=== PATIENT | male | born 2000 | race Caucasian/White ===

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

== ENCOUNTER 2020-12-28 17:45 | Emergency (ER) | payer BC, OTHER ==
--- NOTE | 2020-12-28 18:55 | ED ---
ENT HPI <Lucero Carmona - Last Filed: 12/28/20 18:56> <Charlie Wan - Last Filed: 12/28/20 20:21> - General Chief complaint: ENT Stated complaint: sore throat,fever Time Seen by Provider: 12/28/20 18:52 - History of Present Illness Initial comments: Patient is a 20-year-old male presenting to emergency Department with complaints of a sore throat x 2 days, which is better now, also nasal congestion, fever x 1 day. Patient denies any chest pain, only when coughing, no shortness of breath, no abdominal pain, nausea or vomiting. Coughing only has been minimal. He has been eating and drinking as normal. (Lucero Carmona) - Related Data Home Medications Medication Instructions Recorded Confirmed Methylphenidate HCl 40 mg PO QAM 08/22/18 12/31/18 [Methylphenidate HCl LA] Allergies Allergy/AdvReac Type Severity Reaction Status Date / Time No Known Allergies Allergy Verified 12/28/20 18:56 Review of Systems ROS Other: All systems not noted in ROS Statement are negative. <Lucero Carmona - Last Filed: 12/28/20 18:56> ROS Other: All systems not noted in ROS Statement are negative. <Charlie Wan - Last Filed: 12/28/20 20:21> ROS Statement: Those systems with pertinent positive or pertinent negative responses have been documented in the HPI. Past Medical History Past Medical History: No Reported History Additional Past Medical History / Comment(s): Autism History of Any Multi-Drug Resistant Organisms: None Reported Past Surgical History: No Surgical Hx Reported Past Psychological History: ADD/ADHD Past Alcohol Use History: None Reported Past Drug Use History: None Reported <Lucero Carmona - Last Filed: 12/28/20 18:56> General Exam Limitations: no limitations General appearance: alert, in no apparent distress Head exam: Present: atraumatic Eye exam: Present: normal appearance <Lucero Carmona - Last Filed: 12/28/20 18:56> General appearance: alert, in no apparent distress Head exam: Present: atraumatic, normocephalic, normal inspection Eye exam: Present: normal appearance, PERRL, EOMI. Absent: scleral icterus, conjunctival injection, periorbital swelling ENT exam: Present: normal exam, mucous membranes moist Neck exam: Present: normal inspection. Absent: tenderness, lymphadenopathy Respiratory exam: Present: normal lung sounds bilaterally. Absent: respiratory distress, wheezes, rales, rhonchi, stridor Cardiovascular Exam: Present: regular rate, normal rhythm, normal heart sounds. Absent: systolic murmur, diastolic murmur, rubs, gallop, clicks Extremities exam: Present: normal inspection, full ROM, normal capillary refill. Absent: tenderness, pedal edema, joint swelling, calf tenderness Neurological exam: Present: alert, oriented X3 Psychiatric exam: Present: normal affect, normal mood Skin exam: Present: warm, dry, intact, normal color. Absent: rash <Chralie Wan - Last Filed: 12/28/20 20:21> Course Vital Signs 12/28/20 18:52 Temperature 98.1 F Pulse Rate 104 H Respiratory 20 Rate Blood Pressure 132/78 O2 Sat by Pulse 99 Oximetry Medical Decision Making <Charlie Wan - Last Filed: 12/28/20 20:21> - Medical Decision Making 20-year-old male complaining of sore throat cough and upper respiratory tract symptoms for the past 3 days concern for Covid. Covid test ordered. Covid test negative. Case discussed with Dr. Floyd, patient discharge home with follow-up primary care and conservative management. (Charlie Wan) - Lab Data Lab Results 12/28/20 Range/Units 18:58 Coronavirus (PCR) Not Detected (Not Detectd) Disposition <Lucero Carmona - Last Filed: 12/28/20 18:56> Is patient prescribed a controlled substance at d/c from ED?: No Time of Disposition: : <Charlie Wan - Last Filed: 12/28/20 20:21> Clinical Impression: Acute viral pharyngitis Disposition: HOME SELF-CARE Condition: Stable Instructions (If sedation given, give patient instructions): Pharyngitis (ED) Additional Instructions: Please return to the Emergency Department if symptoms worsen or any other concerns. Follow-up with primary care 1-2 days. Take Tylenol and Motrin as needed for pain. Can take [id number] cough medicine for cough. Referrals: Leighton Randolph MD [Primary Care Provider] - 1-2 days
[2020-12-28 18:56] VITALS: BP 132/78; PULSE 104; RESP 20; TEMP 98.1
== END 2020-12-28 20:26 | disposition home or self-care (01) ==
LOC: EC 17:45
DX: J02.8 Acute pharyngitis due to other specified organisms (principal); B97.89 Other viral agents as the cause of diseases classified elsewhere; F90.9 Attention-deficit hyperactivity disorder, unspecified type; F84.0 Autistic disorder; Z20.822 Contact with and (suspected) exposure to COVID-19
CPT/HCPCS: 87635; 99283

== ENCOUNTER 2022-09-28 12:16 | Emergency (ER) | payer BC, MEDICARE, OTHER ==
[2022-09-28 12:45] VITALS: TEMP 97.9
--- NOTE | 2022-09-28 13:12 | XR ---
EXAMINATION TYPE: XR ankle complete LT DATE OF EXAM: 09/28/2022 COMPARISON: NONE HISTORY: Pain FINDINGS: Three views of the ankle demonstrate the ankle mortise to be intact and symmetric. The joint spaces are preserved. The osseous structures are intact. IMPRESSION: 1. No definite acute fracture or dislocation, if symptoms persist follow-up study in 7 to 10 days wou ld be suggested.
--- NOTE | 2022-09-28 13:13 | XR ---
EXAMINATION TYPE: XR foot complete LT DATE OF EXAM: 09/28/2022 COMPARISON: NONE HISTORY: Pain TECHNIQUE: Three views are submitted. FINDINGS: The osseous structures are intact. There is no acute fracture or dislocation. Joint spaces are p reserved. IMPRESSION: 1. No acute fracture or dislocation. If symptoms persist, follow-up exam in 7 to 10 days could be ob tained.
[2022-09-28] MEDS ORDERED: IBUPROFEN 800 MG TAB PO STA (14:25)
--- NOTE | 2022-09-28 15:03 | ED ---
Lower Extremity Injury HPI - General Chief Complaint: Extremity Injury, Lower Stated Complaint: lt foot injury Time Seen by Provider: 09/28/22 14:34 Source: patient Mode of arrival: ambulatory Limitations: no limitations - History of Present Illness Initial Comments: This is a 21-year-old male who presents to the emergency department for left foot and ankle pain. States that last night he rolled his ankle on stairs and fell. He heard a popping sensation when this occurred and has since had pain and swelling. His mom states that he has had difficulty putting pressure on the foot. He has not taken anything for his pain or applied ice. Denies hitting his head or sustaining any other injuries. Denies any fevers, chills, sore throat, cough, dyspnea, chest pain, palpitations, abdominal pain, nausea, vomiting, diarrhea, back pain, or headaches. MD Complaint: ankle injury, foot injury Onset/Timin -: days(s) - Related Data Home Medications Medication Instructions Recorded Confirmed Methylphenidate HCl 40 mg PO QAM 08/22/18 12/31/18 [Methylphenidate HCl LA] Allergies Allergy/AdvReac Type Severity Reaction Status Date / Time No Known Allergies Allergy Verified 12/28/20 18:56 Review of Systems ROS Statement: Those systems with pertinent positive or pertinent negative responses have been documented in the HPI. ROS Other: All systems not noted in ROS Statement are negative. Past Medical History Past Medical History: No Reported History Additional Past Medical History / Comment(s): Autism History of Any Multi-Drug Resistant Organisms: None Reported Past Surgical History: No Surgical Hx Reported Past Psychological History: ADD/ADHD Past Alcohol Use History: None Reported Past Drug Use History: None Reported General Exam Limitations: no limitations General appearance: alert, in no apparent distress Head exam: Present: atraumatic, normocephalic, normal inspection Respiratory exam: Present: normal lung sounds bilaterally. Absent: respiratory distress, wheezes, rales, rhonchi, stridor Cardiovascular Exam: Present: regular rate, normal rhythm, normal heart sounds. Absent: systolic murmur, diastolic murmur, rubs, gallop, clicks Extremities exam: Present: other (Tenderness to palpation over the dorsal aspect of the left foot and medial malleolus. Minor overlying swelling. 2+ DP and PT pulses. No ecchymosis.) Neurological exam: Present: alert, oriented X3, CN II-XII intact Psychiatric exam: Present: normal affect, normal mood Skin exam: Present: warm, dry, intact, normal color. Absent: rash Course Vital Signs 09/28/22 09/28/22 12:42 15:19 Temperature 97.9 F Pulse Rate 87 77 Respiratory 16 20 Rate Blood Pressure 142/92 135/81 O2 Sat by Pulse 96 98 Oximetry Medical Decision Making - Medical Decision Making This is a 21-year-old male who presents to the emergency department for a left ankle injury. Was pt. sent in by a medical professional or institution? @ -No Did you speak to anyone other than the patient for history? @ -No Did you review nursing and triage notes? @ -Yes, and I agree, it is accurate with regards to the patient's symptoms. Were old charts reviewed? @ -No Differential Diagnosis? @ -Differential Ankle Pain: Fracture, Dislocation, Sprain, Contusion, this is not meant to be an all- inclusive list. EKG interpreted by me (3pts min.)? @ -Not obtained X-rays interpreted by me (1pt min.)? @ -X-ray of the left foot and ankle obtained. My interpretation identifies no acute fractures or dislocations. CT interpreted by me (1pt min.)? @ -Not obtained U/S interpreted by me (1pt. min.)? @ -Not obtained What testing was considered but not performed? (CT, X-rays, U/S, labs)? Why? @ -None What meds were considered but not given? Why? @ -None Did you discuss the management of the patient with other professionals? @ -No Did you reconcile home meds? @ -No Was smoking cessation discussed for >3mins.? @ -No Was critical care preformed (if so, how long)? @ -No Were there social determinants of health that impacted care today? How? (Homelessness, low income, unemployed, alcoholism, drug addiction, transportation, low edu. Level, literacy, decrease access to med. care, shelter, rehab)? @ -No Was there de-escalation of care discussed even if they declined? (Discuss DNR or withdrawal of care, Hospice)? @ -No What co-morbidities impacted this encounter? (DM, HTN, Smoking, COPD, CAD, Cancer, CVA, Hep., AIDS, mental health diagnosis, sleep apnea, morbid obesity)? @ -Autism Was patient admitted / discharged? @ -Discharged. X-ray of the left foot and ankle obtained revealing no acute process. Discussed that if symptoms persist after 7-10 days, he may need repeat imaging in the event there is a fracture that is not currently identifiable. Findings at this point are consistent with a sprain. He was given a Velcro stirrup splint and crutches. Advised ibuprofen and Tylenol as needed for pain relief, keeping the leg elevated, and applying ice for 15-20 minutes every 2-3 hours. Undiagnosed new problem with uncertain prognosis? @ -None Drug Therapy requiring intensive monitoring for toxicity (Heparin, Nitro, Insulin, Cardizem)? @ -None Were any procedures done? @ -None Diagnosis/symptom? @ -Left ankle sprain Acute, or Chronic, or Acute on Chronic? @ -Acute Uncomplicated (without systemic symptoms) or Complicated (systemic symptoms)? @ -Uncomplicated Side effects of treatment? @ -None Exacerbation, Progression, or Severe Exacerbation] @ -Not applicable Poses a threat to life or bodily function? @ -No Return precautions reviewed in depth, the patient is instructed to return to the emergency department with any new, worsening, or concerning symptoms. Patient verbalized understanding. This case was discussed in detail with the attending ED physician, Dr. Vang. Presentation, findings, and treatment plan discussed in detail as well. - Radiology Data Radiology results: report reviewed, image reviewed Disposition Clinical Impression: Left ankle sprain Disposition: HOME SELF-CARE Instructions (If sedation given, give patient instructions): Ankle Sprain (ED) Additional Instructions: Return to the emergency department with any new, worsening, or concerning symptoms. Alternate with ibuprofen and Tylenol as needed for pain relief. Apply ice for 15-20 minutes every 2-3 hours and keep the ankle elevated. Follow up with your primary care provider in 1-2 days. Is patient prescribed a controlled substance at d/c from ED?: No Referrals: Leighton Randolph MD [Primary Care Provider] - 1-2 days
[2022-09-28 15:23] VITALS: BP 135/81; PULSE 77; RESP 20
== END 2022-09-28 15:23 | disposition home or self-care (01) ==
LOC: EC 12:16
DX: S93.402A Sprain of unspecified ligament of left ankle, initial encounter (principal); F90.9 Attention-deficit hyperactivity disorder, unspecified type; Z79.899 Other long term (current) drug therapy; X50.1XXA Overexertion from prolonged static or awkward postures, initial encounter; W10.9XXA Fall (on) (from) unspecified stairs and steps, initial encounter
CPT/HCPCS: 99283